=== PATIENT | male | born 1985 | race African-American/Black ===

== ENCOUNTER 2022-04-25 16:04 | Emergency (ER) | payer BC ==
[~2022-04-25] VITALS: Ht 175.3 cm; Wt 65.3 kg
[2022-04-25 16:06] VITALS: BP 127/74
--- NOTE | 2022-04-25 16:13 | NUR ---
PT AMBULATED TO ER BED 6
--- NOTE | 2022-04-25 16:17 | NUR ---
37YO MALE PT C/O TIGHT 3/10 CHEST PAIN X1 WEEK . PT NOTES INCREASED CHEST PAIN AFTER EPISODES OF COUGHING. 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 RESPIRATIONS EVEN AND UNLABORED. PT PRESENTS WITH DRY COUGH BUT STATES OCCASIONAL PHLEGM. DENIES TAKING MEDICATION FOR PAIN. DENIES DIZZINESS, N/V/D OR FEVERS. PT AAOX4, NO VISIBLE DISTRESS. BED POSITONED PER COMFORT, BED AT LOWEST POSITION, BED RAIL UP X2. HX: DENIES NKA
[2022-04-25] MEDS ORDERED: ASPIRIN 325 MG TAB PO ONE (16:30)
[2022-04-25 16:45] LABS: BASOPHILS % (AUTO) 0.3 % (0.0-2.0); EOSINOPHILS # (AUTO) 0.2 K/uL (0-0.4); HEMATOCRIT 27.2 % (36-52); HEMOGLOBIN 8.9 g/dL (12.0-18.0); LYMPHOCYTES # (AUTO) 0.4 K/uL (2.0-11.5); LYMPHOCYTES % (AUTO) 11.4 % (20.5-51.1); MEAN CORPUSCULAR HEMOGLOBIN 28 pg (27-31); MEAN CORPUSCULAR HGB CONC 33 g/dL (33-37); MEAN CORPUSCULAR VOLUME 86.7 fL (80-94); MONOCYTES # (AUTO) 0.4 K/uL (0.8-1.0); MONOCYTES % (AUTO) 13.9 % (1.7-9.3); NEUTROPHILS # (AUTO) 2.1 K/uL (1.8-7.7); NEUTROPHILS % (AUTO) 67.4 % (42.2-75.2); PLATELET COUNT (AUTO) 96 K/uL (140-450); RED BLOOD CELL COUNT(AUTO) 3.13 MIL/uL (4.20-6.10); WHITE BLOOD COUNT (AUTO) 3.2 K/uL (4.8-10.8)
--- NOTE | 2022-04-25 16:51 | NUR ---
XRAY AT BEDSIDE
--- NOTE | 2022-04-25 17:05 | NUR ---
37/M C/O 3/10 CHEST PAIN, NONPRODUCTIVE COUGH AND SOB X1 WEEK. PATIENT REPORTS PAIN WORSENS WITH COUGH, PATIENT DENIES TAKING MEDS FOR SYMPTOMS, DENIES DIZZINESS, VISION CHANGES, FEVERS, N/V/D. PATIENT O2 98% ON ROOM AIR.
[2022-04-25 17:09] LABS: ANION GAP 9.9 (8-16); ASPARTATE AMINOTRANSFERASE 44 U/L (15-37); CARBON DIOXIDE 30.2 mmol/L (21-32); CHLORIDE 102 mmol/L (98-107); CREATININE 1.1 mg/dL (0.6-1.3); GFR ARICAN-AMERICAN 96 mL/min (>90); GLUCOSE 110 mg/dL (74-106); LIPASE 754 U/L (73-393); POTASSIUM 4.1 mmol/L (3.5-5.1); SODIUM SERUM 138 mmol/L (136-145); TOTAL BILIRUBIN 0.3 mg/dL (0.0-1.0); UREA NITROGEN, BLOOD 13 mg/dL (7-18)
[2022-04-25] MEDS ORDERED: ROBAC PO (17:38)
[2022-04-25 17:57] LABS: BARBITURATE, URINE NEGATIVE ng/ml (NEG <=200); BENZODIAZEPINE, URINE NEGATIVE ng/mL (NEG <=200); CANNABINOID, URINE NEGATIVE ng/mL (NEG <=50); COCAINE, URINE NEGATIVE ng/mL (NEG <=300); PHENCYCLIDINE SCREEN,URINE NEGATIVE ng/mL (NEG <=25)
[2022-04-25 17:58] LABS: OPIATE, URINE NEGATIVE ng/mL (NEG <=2000)
[2022-04-25 18:00] VITALS: BP 101/78
--- NOTE | 2022-04-25 18:00 | NUR ---
Patient discharged with v/s stable. Written and verbal after care instructions FOR ACUTE PANCREATITIS AND COUGH given and explained. Patient alert, oriented and verbalized understanding of instructions. Ambulatory with steady gait. All questions addressed prior to discharge. ID band removed. Patient advised to follow up with PMD. Rx of CODEINE PHOSPHATE given. Opportunity to ask questions provided and answered.
--- NOTE | 2022-04-25 18:05 | NUR ---
The patient's care was reviewed and supervised by Shabnam Duong RN.
== END 2022-04-25 18:00 | disposition home or self-care (01) ==
LOC: MED 16:04
DX: R10.13 Epigastric pain (principal); R07.9 Chest pain, unspecified; R68.2 Dry mouth, unspecified; Z79.899 Other long term (current) drug therapy
CPT/HCPCS: 36415; 71045; 80053; 80305; 81002; 83690; 84484; 85025; 93005; 99285